=== PATIENT | female | born 1945 | race Caucasian/White ===

== ENCOUNTER → 2016-11-21 | Outpatient (REF) | payer MEDICARE, MEDICAID ==
[~2016-11-21] MED LIST: *PREMTA OR; /ADVA50050 IN; /ALEN70TA OR; /MOXI40TA IV; /PANT40TA IV; /PANT40TA OR; /TIOT18INH INH; /WARF5TA OR; ACET-654 PO; ACET0.052 PO; ACET650S3 PR; ACET65TA OR; ADVA115A INH; ALBU83IN IN; ALBU83IN INH; ALBU83IN NEB; ALUMSUS2 PO; AMLO10TA OR; APRESOLINE PO; ASPI1TAB PO; ASPI325T OR; ASPI81TA85 PO; Apresoline PO; BACITAB3 PO; BEN1.4DI EX; BENPAD TOP; BENZ100C5 PO; CEPH500C PO; CHLO0.5L MT; CINA30TA PO; CLAR1TAB2 PO; CLAR5CHW OR; CLIN300C IV; CLON-412 PO; CLOTR1CR TOP; COLA100C2 OR; CRAN500C2 PO; DALI1TAB2 PO; DESE1CRE TOP; DIOV320T OR; DRIS50002 PO; DULC10SU2 PR; DUO; ENEMENE3 PR; ENEMENE6 PR; ENOX40SY SC; ENSULIQ75 PO; FLOVENT INH; FOLI1TAB OR; FOLI1TAB2 PO; GUAI1TAB PO; HYDR-4266 PO; HYPERTONIC SALINE NEB; IPRASOL4 INH; IPRASOL4 NEB; KLOR10TA OR; LASI20TA PO; LASI40TA OR; LEVA500T PO; LEVO25TA2 OR; LIDO5DIS36 TD; LISI-538 PO; LISI10TA4 OR; LORT5TAB PO; LOSA100T36 PO; LOVE1INJ2 SC; MAGN400T2 PO; METO5TAB2 OR; MICA5TAB PO; MILKSUS OR; MILKSUS PO; MIRALEX PO; MYLASUS2 PO; Metamucil PO; Mycostatin PO; Mycostatin TOP; NEXI40CA PO; NIASPAN ER PO; NORV5TAB PO; ONDA4TAB6 PO; PERC5TAB6 PO; PLAV75TA2 OR; POTA20TA OR; PRED10TA PO; PRED20TA PO; PRIL20CA OR; PROA1AER INH; PULM0.5S INH; SIMV20TA2 OR; SIMV20TA2 PO; SPIR1CAP INH; SULF50TA OR; TRAM37.53 PO; TRAM50TA2 OR; TYLE325T5 PO; VASO2.5T IV; VITA-130 PO; VITA500T3 PO; VITMTA PO; XANA0.25 PO; ZETI10TA OR; ZETI10TA2 PO; ZOFR20TA PO; ZOFR20TA SL; ZOFR4TAB3 PO; [UNRECOGNIZED DRUG - CODE] OR; [UNRECOGNIZED DRUG - CODE] PO
== END ==
LOC: SKLAB3 14:42
PROVIDERS: ATTEND Family Medicine
DX: R33.9 Retention of urine, unspecified (principal)

== ENCOUNTER → 2016-11-23 | Outpatient (REF) | payer MEDICARE, MEDICAID ==
[2016-11-23 14:55] LABS: BASO % 0.2 % (0.0-1.0); EOS % 0.2 % (0.0-3.0); LARGE UNSTAINED CELL # 0.1 K/mm3 (0.0-0.4); LARGE UNSTAINED CELL % 0.4 % (0.0-4.0); LYMPH # 0.4 K/mm3 (1.5-4.5); MEAN CORPUSCULAR HEMOGLOBIN 29.3 pg (27.0-33.0); MEAN CORPUSCULAR HGB CONC 32.6 g/dl (32.0-36.5); MEAN CORPUSCULAR VOLUME 89.9 fl (80.0-96.0); MONO # 0.4 K/mm3 (0.0-0.8); MONO % 2.1 % (0.0-5.0); NEUTROPHILS # 16.9 K/mm3 (1.8-7.7); NEUTROPHILS % 95.1 % (36.0-66.0); PLATELET COUNT, AUTOMATED 269 k/mm3 (150-450); RED CELL DISTRIBUTION WIDTH 13.1 % (11.5-14.5); WHITE BLOOD COUNT 17.8 K/mm3 (4.0-10.0)
[2016-11-23 15:07] LABS: ALBUMIN 2.9 GM/DL (3.2-5.2); ALBUMIN/GLOBULIN RATIO 1.12 (1.00-1.93); BILIRUBIN,TOTAL 0.4 MG/DL (0.2-1.0); CALCIUM LEVEL 8.8 MG/DL (8.8-10.2); CREATININE FOR GFR 1.24 MG/DL (0.55-1.02); GLOMERULAR FILTRATION RATE 45.7 (>45); TOTAL PROTEIN 5.5 GM/DL (6.4-8.2)
--- NOTE | 2016-11-23 16:20 | REP ---
Clinical: Shortness of breath. Comparison: 07/13/2016. Findings: Stable chronic changes are appreciated along with cephalization, prominent pulmonary vasculature and interstitium as well as bibasilar opacities and suspected small layering effusions. No pneumothorax. Tracheostomy overlies the airway. Mediastinum and cardiac silhouette are stable. Skeletal structures unchanged. Impression: Findings suggesting pulmonary venous congestion and interstitial edema with bibasilar atelectasis and small layering effusion. Signed by Marcelo Vieyra MD 11/23/2016 04:11 P
== END ==
LOC: SKLAB3 13:10
PROVIDERS: ATTEND Family Medicine
DX: R06.02 Shortness of breath (principal)

== ENCOUNTER → 2016-11-24 | Outpatient (CLI) | payer MEDICARE, MEDICAID ==
[2016-11-24 08:24] LABS: BASO # 0.3 K/mm3 (0.0-0.2); BASO % 1.5 % (0.0-1.0); EOS # 0.1 K/mm3 (0.0-0.50); EOS % 0.5 % (0.0-3.0); LARGE UNSTAINED CELL # 0.2 K/mm3 (0.0-0.4); LYMPH # 1.6 K/mm3 (1.5-4.5); MEAN CORPUSCULAR HEMOGLOBIN 28.3 pg (27.0-33.0); MEAN CORPUSCULAR HGB CONC 32.2 g/dl (32.0-36.5); MEAN CORPUSCULAR VOLUME 87.8 fl (80.0-96.0); MONO # 0.8 K/mm3 (0.0-0.8); MONO % 4.2 % (0.0-5.0); NEUTROPHILS # 15.2 K/mm3 (1.8-7.7); NEUTROPHILS % 84.8 % (36.0-66.0); PLATELET COUNT, AUTOMATED 305 k/mm3 (150-450); RED CELL DISTRIBUTION WIDTH 14.1 % (11.5-14.5)
[2016-11-24 08:52] LABS: CALCIUM LEVEL 9.4 MG/DL (8.8-10.2); CREATININE FOR GFR 1.51 MG/DL (0.55-1.02); GLOMERULAR FILTRATION RATE 36.4 (>45); POTASSIUM SERUM 3.8 MEQ/L (3.5-5.1)
== END ==
LOC: SKLAB3 04:34
PROVIDERS: ATTEND Family Medicine
DX: D72.829 Elevated white blood cell count, unspecified (principal); R06.02 Shortness of breath

== ENCOUNTER → 2016-11-27 | Outpatient (REF) | payer MEDICARE, MEDICAID ==
[2016-11-27 07:46] LABS: MEAN CORPUSCULAR HEMOGLOBIN 29.8 pg (27.0-33.0); MEAN CORPUSCULAR HGB CONC 33.2 g/dl (32.0-36.5); MEAN CORPUSCULAR VOLUME 89.7 fl (80.0-96.0); WHITE BLOOD COUNT 9.6 K/mm3 (4.0-10.0)
[2016-11-27 08:19] LABS: ALBUMIN 3.4 GM/DL (3.2-5.2); ALBUMIN/GLOBULIN RATIO 1.06 (1.00-1.93); BILIRUBIN,TOTAL 0.2 MG/DL (0.2-1.0); CALCIUM LEVEL 10.8 MG/DL (8.8-10.2); CREATININE FOR GFR 1.13 MG/DL (0.55-1.02); GLOMERULAR FILTRATION RATE 50.8 (>45); TOTAL PROTEIN 6.6 GM/DL (6.4-8.2)
== END ==
LOC: SKLAB3 15:04
PROVIDERS: ATTEND Family Medicine
DX: J44.9 Chronic obstructive pulmonary disease, unspecified (principal)

== ENCOUNTER → 2016-12-06 | Outpatient (CLI) | payer MEDICARE ==
[~2016-12-06] MED LIST changes: +ACETYLCYSTEINE 20% 30 ML VIAL As Ordered ONE; +BUSP5TA PO; +D5W 100 ML IV SCH; +IPRATROPIUM 0.5MG/ALBUTEROL 2.5MG INH SOL UD 3ML (DUONEB)(J7620) As Ordered ONE; +IPRATROPIUM 0.5MG/ALBUTEROL 2.5MG INH SOL UD 3ML (DUONEB)(J7620) NEB ONE; +LIDOCAINE 2% MDV 20 ML VIAL As Ordered ONE; +MIDAZOLAM INJ 2 MG/2 ML VIAL (J2250) IV ONE; +MULTCAP11 PO; +SENN-22 PO; +VESI5TAB PO
[2016-12-06 14:51] VITALS: BP 137/56
--- NOTE | 2016-12-07 19:48 | RO ---
DATE OF PROCEDURE: 12/06/2016 (The dictating system was down yesterday). PREPROCEDURE DIAGNOSIS: Tracheostomy aging. POSTPROCEDURE DIAGNOSIS: Tracheostomy aging with possible tissue obstruction of the distal trachea. PROCEDURE: Tracheostomy change under moderate sedation. SURGEON: Dr. Margarito Marino FORGE OPERATOR: ANESTHESIA: DESCRIPTION OF PROCEDURE: Under satisfactory moderate sedation achieved with 2 mg of Versed, 2% lidocaine was placed down the tracheostomy tube. Tracheostomy tube was removed and another bolus of 2% lidocaine was placed into the proximal trachea. This was suctioned out. After waiting approximately 1-2 minutes, the new tracheostomy tube was placed. It was noticed that the new tracheostomy tube was very high riding. The new tracheostomy tube was then manipulated to the right and then slipped in without difficulty. Prior to undertaking this tracheostomy change, the last one done was quite traumatic and there was the same problem encountered where the tracheostomy tube did not go in all the way initially. It was finally pushed in and passed what is now thought to be a possible ridge or obstruction. The tracheostomy tube was secured to the neck with Velcro straps. We will plan again to change her tracheostomy tube in 2-3 months at which time I will undertake a bronchoscopy to look at the distal trachea. Patient tolerated the procedure well.
== END ==
LOC: M OPP 12:34
PROVIDERS: ATTEND Thoracic Surgery (Cardiothoracic Vascular Surgery)
DX: J95.09 Other tracheostomy complication (principal); Z88.0 Allergy status to penicillin; Z88.1 Allergy status to other antibiotic agents; Z88.8 Allergy status to other drugs, medicaments and biological substances; Z79.899 Other long term (current) drug therapy

== ENCOUNTER → 2017-01-01 | Outpatient (REF) | payer MEDICARE ==
[~2017-01-01] MED LIST changes: -ACETYLCYSTEINE 20% 30 ML VIAL As Ordered ONE; -D5W 100 ML IV SCH; -IPRATROPIUM 0.5MG/ALBUTEROL 2.5MG INH SOL UD 3ML (DUONEB)(J7620) As Ordered ONE; -IPRATROPIUM 0.5MG/ALBUTEROL 2.5MG INH SOL UD 3ML (DUONEB)(J7620) NEB ONE; -LIDOCAINE 2% MDV 20 ML VIAL As Ordered ONE; -MIDAZOLAM INJ 2 MG/2 ML VIAL (J2250) IV ONE
[2017-01-01 09:34] LABS: BASO % 0.3 % (0.0-1.0); EOS # 0.1 K/mm3 (0.0-0.50); LARGE UNSTAINED CELL # 0.1 K/mm3 (0.0-0.4); LARGE UNSTAINED CELL % 0.7 % (0.0-4.0); LYMPH % 14.5 % (24.0-44.0); MEAN CORPUSCULAR HGB CONC 32.3 g/dl (32.0-36.5); MEAN CORPUSCULAR VOLUME 89.7 fl (80.0-96.0); MONO # 0.6 K/mm3 (0.0-0.8); MONO % 4.9 % (0.0-5.0); NEUTROPHILS # 10.3 K/mm3 (1.8-7.7); NEUTROPHILS % 78.6 % (36.0-66.0); PLATELET COUNT, AUTOMATED 347 k/mm3 (150-450); RED CELL DISTRIBUTION WIDTH 14.5 % (11.5-14.5); WHITE BLOOD COUNT 13.1 K/mm3 (4.0-10.0)
[2017-01-01 09:40] LABS: CALCIUM LEVEL 10.1 MG/DL (8.8-10.2); CREATININE FOR GFR 1.37 MG/DL (0.55-1.02); GLOMERULAR FILTRATION RATE 40.7 (>45); MAGNESIUM LEVEL 2.3 MG/DL (1.8-2.4); POTASSIUM SERUM 3.3 MEQ/L (3.5-5.1)
== END ==
LOC: SKLAB3 10:47
PROVIDERS: ATTEND Family Medicine
DX: I10 Essential (primary) hypertension (principal); J44.9 Chronic obstructive pulmonary disease, unspecified

== ENCOUNTER 2017-01-16 19:07 | Inpatient (IN) | payer MEDICARE ==
[~2017-01-16] VITALS: Ht 162.6 cm; Wt 62.7 kg
[2017-01-16] VITALS (37 sets, daily range): BP systolic 133–189; BP diastolic 57–93
[2017-01-16] MEDS: IPRATROPIUM 0.5MG/ALBUTEROL 2.5MG INH SOL UD 3ML (DUONEB)(J7620) NEB SCH (19:30)
[2017-01-16 19:53] LABS: BASO % 0.3 % (0.0-1.0); EOS # 0.1 K/mm3 (0.0-0.50); EOS % 0.5 % (0.0-3.0); LARGE UNSTAINED CELL # 0.1 K/mm3 (0.0-0.4); LYMPH # 1.7 K/mm3 (1.5-4.5); LYMPH % 13.3 % (24.0-44.0); MEAN CORPUSCULAR HEMOGLOBIN 28.9 pg (27.0-33.0); MEAN CORPUSCULAR HGB CONC 32.5 g/dl (32.0-36.5); MEAN CORPUSCULAR VOLUME 88.9 fl (80.0-96.0); MONO # 0.4 K/mm3 (0.0-0.8); MONO % 2.8 % (0.0-5.0); NEUTROPHILS # 10.6 K/mm3 (1.8-7.7); NEUTROPHILS % 82.1 % (36.0-66.0); PLATELET COUNT, AUTOMATED 303 k/mm3 (150-450); RED CELL DISTRIBUTION WIDTH 14.2 % (11.5-14.5); WHITE BLOOD COUNT 12.9 K/mm3 (4.0-10.0)
[2017-01-16 19:56] LABS: ABG BASE EXCESS 10.2 (-2.0-2.0); ABG HCO3 36.3 MEQ/L (22.0-26.0); ABG PARTIAL PRESSURE CO2 55.8 mmHg (35.0-45.0); ABG PARTIAL PRESSURE O2 71.4 mmHg (75.0-100.0); ABG STANDARD HCO3 33.9 MEQ/L (22.0-26.0); ABG pH (ARTERIAL) 7.431 UNITS (7.350-7.450)
[2017-01-16] MEDS: TOBRAMYCIN INHAL 300 MG/5 ML SOLN INH SCH (20:00)
[2017-01-16] MEDS ORDERED: MIDAZOLAM INJ 2 MG/2 ML VIAL (J2250) As Ordered ONE ×2 (20:01→20:02)
[2017-01-16] MEDS ORDERED: FLUMAZENIL 0.5 MG/5 ML VIAL As Ordered ONE (20:03)
[2017-01-16] MEDS ORDERED: VITMTA PO (20:08)
[2017-01-16] MEDS ORDERED: BENPAD EXT (20:08)
[2017-01-16] MEDS ORDERED: DRIS50002 PO (20:10)
[2017-01-16 20:11] LABS: ANION GAP 2 MEQ/L (8-16); BLOOD UREA NITROGEN 36 MG/DL (7-18); CALCIUM LEVEL 9.9 MG/DL (8.8-10.2); CARBON DIOXIDE LEVEL 36 MEQ/L (21-32); CHLORIDE LEVEL 99 MEQ/L (98-107); CREATININE FOR GFR 1.43 MG/DL (0.55-1.02); GLOMERULAR FILTRATION RATE 38.7 (>45); GLUCOSE, FASTING 123 MG/DL (80-110); POTASSIUM SERUM 3.7 MEQ/L (3.5-5.1); SODIUM LEVEL 137 MEQ/L (136-145)
[2017-01-16] MEDS ORDERED: BUSP30TA PO (20:13)
[2017-01-16] MEDS ORDERED: SENN8.6T7 PO (20:13)
[2017-01-16] MEDS ORDERED: GUAI20TA PO (20:19)
[2017-01-16] MEDS ORDERED: RANI150T PO (20:19)
[2017-01-16] MEDS ORDERED: ALPR0.5T3 PO (20:19)
[2017-01-16] MEDS ORDERED: MELA10CA PO (20:19)
[2017-01-16] MEDS ORDERED: MS C15TA2 PO (20:19)
[2017-01-16] MEDS ORDERED: OXYC-517 PO (20:22)
[2017-01-16] MEDS ORDERED: XANA1TAB PO (20:22)
[2017-01-16] MEDS ORDERED: FERR325T PO (20:24)
[2017-01-16] MEDS ORDERED: MIDAZOLAM INJ 2 MG/2 ML VIAL (J2250) IV STA ×2 (20:26→21:37)
[2017-01-16] MEDS ORDERED: ANTASUS PO (20:28)
[2017-01-16] MEDS ORDERED: ONDA4TAB6 PO (20:28)
[2017-01-16] MEDS ORDERED: PERCOCET 5MG/325MG TAB PO PRN (20:45)
[2017-01-16] MEDS ORDERED: LEVALBUTEROL 1.25 MG/0.5 ML CONCENTRATE NEB NEB PRN (20:45)
[2017-01-16] MEDS ORDERED: BISACODYL 10 MG SUPP PR PRN (20:45)
[2017-01-16] MEDS ORDERED: ONDANSETRON 4MG/2ML VIAL (J2405) IV PRN (20:45)
[2017-01-16] MEDS ORDERED: ACETAMINOPHEN TAB 650MG DOSE (2X325MG) PO PRN (20:45)
[2017-01-16] MEDS ORDERED: NORCO, ANEXSIA 5/325MG TABLET (HYDROcodone/ACETAMINOPHEN) PO PRN (20:45)
[2017-01-16 20:58] LABS: BASO % 0.2 % (0.0-1.0); EOS # 0.1 K/mm3 (0.0-0.50); EOS % 0.5 % (0.0-3.0); LARGE UNSTAINED CELL # 0.1 K/mm3 (0.0-0.4); LARGE UNSTAINED CELL % 0.9 % (0.0-4.0); LYMPH # 1.8 K/mm3 (1.5-4.5); LYMPH % 13.6 % (24.0-44.0); MEAN CORPUSCULAR VOLUME 90.5 fl (80.0-96.0); MONO # 0.5 K/mm3 (0.0-0.8); MONO % 4.4 % (0.0-5.0); NEUTROPHILS # 9.8 K/mm3 (1.8-7.7); NEUTROPHILS % 80.4 % (36.0-66.0); PLATELET COUNT, AUTOMATED 284 k/mm3 (150-450); RED CELL DISTRIBUTION WIDTH 14.6 % (11.5-14.5); WHITE BLOOD COUNT 12.2 K/mm3 (4.0-10.0)
[2017-01-16 21:04] LABS: INR 0.89
[2017-01-16 21:30] LABS: ALBUMIN 3.6 GM/DL (3.2-5.2); BILIRUBIN,TOTAL 0.3 MG/DL (0.2-1.0); CALCIUM LEVEL 10.1 MG/DL (8.8-10.2); CREATININE FOR GFR 1.41 MG/DL (0.55-1.02); GLOMERULAR FILTRATION RATE 39.4 (>45); PHOSPHORUS LEVEL 3.1 MG/DL (2.5-4.9); POTASSIUM SERUM 3.6 MEQ/L (3.5-5.1); TOTAL PROTEIN 7.2 GM/DL (6.4-8.2)
[2017-01-16] MEDS ORDERED: MIDAZOLAM INJ 2 MG/2 ML VIAL (J2250) IV ONE (21:30)
[2017-01-16] MEDS ORDERED: GLUCOSE 4 GM CHEW TABLET PO PRN (21:45)
[2017-01-16] MEDS ORDERED: DEXTROSE 50% 50 ML SYRINGE IV PRN (21:45)
[2017-01-16] MEDS ORDERED: GLUCAGON FOR INJ 1 MG VIAL (J1610) SC PRN (21:45)
[2017-01-16] MEDS: DOCUSATE SODIUM 100 MG CAP PO SCH (22:53)
[2017-01-16] MEDS: CHLORHEXIDINE GLUCONATE 0.12 % 15ML UDC (PERIDEX ORAL RINSE) MT SCH (22:53)
[2017-01-16] MEDS: cefTAZidime 1 GM in D5W MINI-BAG PLUS 100 ML IV SCH (22:54)
[2017-01-16] MEDS: ALPRAZolam 0.5 MG TAB PO SCH (22:54)
[2017-01-16] MEDS: HEPARIN SOD (PORCINE) 5000 UNITS/ML VIAL SC SCH (22:54)
--- NOTE | 2017-01-16 23:28 | HPE ---
DATE OF ADMISSION: 01/16/2017 CRITICAL CARE HISTORY AND PHYSICAL Critical care time was 1 hour. This excludes all procedures. HISTORY OF PRESENT ILLNESS: I was called urgently to the intensive care unit (ICU) for an upper airway obstruction in a patient with a chronic tracheostomy. On my arrival to the room, the patient had significant amounts of mucus secretions coming out of her tracheostomy. She is a fenestrated trach in place and her cannula had already been removed with reports that it was full of thick mucus. Due to her respiratory distress, I immediately sprayed her airway with Cetacaine and performed bronchoscopy within the airway. There was a large amount of granulomatous tissue coming through the fenestration. I was able to bypass this, however, and extend down into the trachea where there was a moderate amount of mucus, mostly foamy, pale yellow in nature. No evidence of hemoptysis. Trachea was midline. Char was sharp. There was no evidence of tracheal stenosis past the level of the trach. Dr. Marino, who was the initial accepting physician, also came to bedside. It was determined to consult otolaryngology. Dr. Stoner was then consulted and presented urgently to the bedside. He had switched out her trach to a nonfenestrated trach and recommended treatment of tracheitis. The patient is able to perform some communication by mouthing words at this point in time. Normally she has a Passy-Buckingham valve and according to progress note from 12/30/2016, could speak easily with the Passy-Suni valve. She has a chronic history of Pseudomonas colonization. It is not clear that she is followed by pulmonology. She is at [facility] with a history of end-stage emphysema, chronic prednisone use and chronic hypoxic hypercarbic respiratory failure. After bronchoscopy, her breathing is slightly improved. She is on an aerosol mask. Frequent suctioning is being performed. PAST MEDICAL HISTORY: 1. End-stage emphysema, Gold stage IV. 2. Chronic trach after a prolonged hospitalization with septic shock. She has had this trach for 2 years now. 3. Chronic prednisone use at 10 mg a day. I am not sure the exact indication for this. 4. History of ileostomy. 5. History of Clostridium difficile. 6. History of obstructive sleep apnea. 7. Hypertensive heart disease with diastolic dysfunction. 8. Chronic anemia. 9. Chronic kidney disease. 10. Secondary hyperparathyroidism. 11. History of VRE. 12. Chronic anxiety. 13. Generalized osteoarthritis. 14. Chronic dysphagia. 15. Type 2 diabetes. 16. Ventral hernia. OUTPATIENT MEDICATIONS As documented in chart and copy from [facility]. ALLERGIES: Include AMOXICILLIN, METRONIDAZOLE, PENICILLINS, TETRACYCLINES. It appears that penicillin is simply a rash. There is no history of anaphylaxis. It is not clear the exact reaction to metronidazole. SOCIAL HISTORY: Unobtainable at this point in time. I do know that she has a Medical Orders for Life-Sustaining Treatment (MOLST) form that states she is DO NOT RESUSCITATE (DNR). She does not want any further resuscitation. FAMILY HISTORY: Not obtainable. REVIEW OF SYSTEMS: Unobtainable. PHYSICAL EXAMINATION: Temperature is 98.2, pulse is 102, respiratory rate is 28, blood pressure is 162/81, pulse oximetry initially 84% on nonrebreather. After bronchoscopy, oxygen saturation 100% on nonrebreather. The patient was then switched to 35% FiO2 and is saturating in the low 90s. General: The patient was in clear distress, tachypneic, tachycardiac with difficulty breathing, coughing up large amounts of mucus initially from the trach. HEENT: Sclerae clear and anicteric. Pupils equal, round, reactive to light. Mucous membranes are moist without lesions. She has upper dentures in place. No lower dentures. Tongue is midline. Neck is supple. No tracheal deviation. As mentioned in the in the history of the present illness, there is granulomatous tissue coming through the fenestration with significant amounts of mucus. All mucous was cleared. Trach was replaced by ENT at bedside with a nonfenestrated trach. Cardiac: Tachycardic, S1, S2 without audible murmur, rub, or gallop. Point of maximum impulse (PMI) is difficult to palpate. Pulmonary: Decreased breath sounds throughout without rales, rhonchi or wheezes. She is using accessory muscles to breathe. Abdomen is soft, nontender, nondistended. There is a large ventral hernia, very little abdominal muscle. There is a right lower quadrant ostomy with green solid stool. There is hyperactive bowel sounds. Extremities: No cyanosis or clubbing. There is minimal pitting edema around the ankles. Skin: No rashes, jaundice or bruising. Neurologic: No unilateral weakness; however, there is generalized muscle weakness. No tremor or asterixis. Musculoskeletal: Significant muscle wasting without evidence of joint effusion or fracture. Laboratory evaluation shows a pH of 7.43, pCO2 of 55.8, pAO2 of 71.4 on a nonrebreather. White blood cell count is 12.9, hemoglobin 11.7, hematocrit of 36.1 with a platelet count of 303 with 82% neutrophilia. Sodium is 137, potassium is 3.7, chloride 99, bicarbonate 36, BUN is 36, creatinine is 1.43, and a glucose of 123. Chest x-ray shows no evidence of pneumonia. There is some flattening of the diaphragms, hyperinflation and evidence of emphysema. There is a trach which is in appropriate position. Trachea appears clear. Left costophrenic angle slightly blunted. There does appear to be chronic parenchymal lung disease with prominent pulmonary artery suggesting pulmonary hypertension from her severe lung disease. IMPRESSION: 1. Acute respiratory failure secondary to partial airway obstruction. Appreciate Dr. Stoner's intervention. Will continue to monitor. Will treat tracheitis with and Roberto nebs due to her history of Pseudomonas and obtain sputum cultures. Antibiotics will be tapered due to the results of the sputum collection. 2. Chronic steroid use, on prednisone 10 mg. Will continue this on a daily basis. 3. Chronic hypercarbic respiratory failure and chronic hypoxic respiratory failure. Will continue oxygen as tolerated. She does not have evidence of decompensation of the hypercarbia at this point in time. The patient is at risk for this and will be monitored in the ICU. 4. Leukocytosis. Likely secondary to chronic steroid use but possibly secondary to infection. Blood cultures were obtained. 5. Renal failure. No evidence of worsening of her usual renal failure, creatinine is 1.43 today. Will monitor urine output. 6. Gastroesophageal reflux. I have placed her on Protonix. At this point in time, she has no symptoms of reflux. 7. Anxiety. I will continue her usual outpatient dose of Xanax. 8. Hypertension with hypertensive heart disease and diastolic dysfunction. I have continued Norvasc. Will continue to monitor her volume status for need for Lasix. 9. Type 2 diabetes. I placed her on a sliding scale insulin to cover for hyperglycemia as I somewhat question this underlying diagnosis. 10. Polyneuropathy. Unclear per history why she has polyneuropathy, possibly from steroid neuropathy versus diabetic neuropathy. 11. Dysphagia. I have written for a puree diet. 12. History of Clostridium difficile. I would normally start Flagyl prophylactically with the use of antibiotics; however, she has an allergy to Flagyl. Will continue to monitor for loose stools and for worsening of leukocytosis. CODE STATUS: The patient is a DO NOT RESUSCITATE (DNR). No further resuscitative efforts will be performed. This is based on the patient's previously expressed wishes. Critical care time was 1 hour. This excludes all procedures.
--- NOTE | 2017-01-16 23:33 | RO ---
DATE OF PROCEDURE: 01/16/2017 PREOPERATIVE DIAGNOSIS: Airway obstruction and respiratory distress. POSTOPERATIVE DIAGNOSIS: Airway obstruction and respiratory distress. PROCEDURE: Bronchoscopy, airway inspection. SURGEON: Dr. Christian Tate LCAC RADAR OPERATOR/NAVIGATOR: Dr. Marino ANESTHESIA: Versed 2 mg IV DESCRIPTION OF PROCEDURE: I anesthetized the tracheostomy with Cetacaine spray. Time-out was performed, identifying two patient identifiers, correct site, correct procedure. Procedure was deemed urgent; therefore, no further consent was obtained. 2 mg of IV Versed was administered. The mucus was suctioned from the airway. There was a fairly large amount of granulation tissue coming through the fenestration, which obstructed approximately 45% of the trach. I was able to pass the scope beyond this obstruction. The airways were otherwise clear except for mucus secretions. These were suctioned. The patient had a great deal of coughing. Therefore, the bronchoscope was removed. There were no observed complications. Trach was then changed by ENT. JUHI
[2017-01-17] VITALS (12 sets, daily range): BP systolic 126–192; BP diastolic 60–89
[2017-01-17] MEDS: HumaLOG INSULIN (NovoLOG) PER UNIT SC SCH ×4 (00:17→17:31)
[2017-01-17] MEDS: PERCOCET 5MG/325MG TAB PO PRN ×4 (03:15→20:13)
[2017-01-17 05:00] LABS: ABG BASE EXCESS 6.1 (-2.0-2.0); ABG HCO3 32.8 MEQ/L (22.0-26.0); ABG PARTIAL PRESSURE CO2 58.4 mmHg (35.0-45.0); ABG PARTIAL PRESSURE O2 100.2 mmHg (75.0-100.0); ABG TOTAL CO2 34.6 MEQ/L (23.0-31.0); ABG pH (ARTERIAL) 7.367 UNITS (7.350-7.450)
[2017-01-17 05:04] LABS: BASO % 0.3 % (0.0-1.0); EOS # 0.2 K/mm3 (0.0-0.50); EOS % 1.4 % (0.0-3.0); LARGE UNSTAINED CELL # 0.1 K/mm3 (0.0-0.4); LARGE UNSTAINED CELL % 1.3 % (0.0-4.0); LYMPH # 2.5 K/mm3 (1.5-4.5); LYMPH % 20.9 % (24.0-44.0); MEAN CORPUSCULAR HEMOGLOBIN 29.8 pg (27.0-33.0); MEAN CORPUSCULAR HGB CONC 32.6 g/dl (32.0-36.5); MEAN CORPUSCULAR VOLUME 91.4 fl (80.0-96.0); MONO # 0.6 K/mm3 (0.0-0.8); MONO % 5.4 % (0.0-5.0); NEUTROPHILS # 8.1 K/mm3 (1.8-7.7); NEUTROPHILS % 70.7 % (36.0-66.0); PLATELET COUNT, AUTOMATED 267 k/mm3 (150-450); RED CELL DISTRIBUTION WIDTH 14.5 % (11.5-14.5); WHITE BLOOD COUNT 11.5 K/mm3 (4.0-10.0)
[2017-01-17 05:17] LABS: CALCIUM LEVEL 9.7 MG/DL (8.8-10.2); CREATININE FOR GFR 1.38 MG/DL (0.55-1.02); GLOMERULAR FILTRATION RATE 40.4 (>45); POTASSIUM SERUM 3.5 MEQ/L (3.5-5.1)
[2017-01-17] MEDS: IPRATROPIUM 0.5MG/ALBUTEROL 2.5MG INH SOL UD 3ML (DUONEB)(J7620) NEB SCH ×6 (06:05→20:35)
[2017-01-17] MEDS: LEVALBUTEROL 1.25 MG/0.5 ML CONCENTRATE NEB NEB SCH ×4 (06:05→20:00)
--- NOTE | 2017-01-17 06:09 | REP ---
PORTABLE CHEST: AP portable view of the chest is performed. Comparison 07/13/2016. There is bibasilar fibrotic change which is stable. There is a tracheostomy tube. There is calcification of the thoracic aorta. The heart is slightly enlarged. The mediastinal silhouette is unchanged. IMPRESSION: Stable chronic findings without definite acute pulmonary disease. Signed by Jose C Freeman MD 01/17/2017 10:13 A
[2017-01-17] MEDS: TOBRAMYCIN INHAL 300 MG/5 ML SOLN INH SCH ×2 (07:24→20:35)
[2017-01-17] MEDS: MOM 30ML SUSPENSION UDC PO SCH (07:48)
[2017-01-17] MEDS: DOCUSATE SODIUM 100 MG CAP PO SCH ×2 (07:48→20:15)
[2017-01-17] MEDS: CHLORHEXIDINE GLUCONATE 0.12 % 15ML UDC (PERIDEX ORAL RINSE) MT SCH ×2 (08:07→20:14)
[2017-01-17] MEDS: PANTOPRAZOLE 40MG INJ (PROTONIX) (C9113) IV SCH (08:08)
[2017-01-17] MEDS: LACTOBACILLUS ACIDOPHILUS CAP (BACID) PO SCH ×2 (08:08→20:13)
[2017-01-17] MEDS: predniSONE 10 MG TAB PO SCH (08:08)
[2017-01-17] MEDS: HEPARIN SOD (PORCINE) 5000 UNITS/ML VIAL SC SCH ×2 (08:08→20:16)
[2017-01-17] MEDS: amLODIPine 5 MG TAB PO SCH (08:09)
[2017-01-17] MEDS: ALPRAZolam 0.5 MG TAB PO SCH ×2 (08:09→20:16)
--- NOTE | 2017-01-17 08:24 | REP ---
Portable chest x-ray: Sitting AP view. History: Tracheostomy tube change. Comparison study January 16, 2017. Findings: Tracheostomy tube is seen in good position. EKG monitoring electrodes overlie the chest. The lung lópez are well inflated, clear and unchanged. There are some emphysematous changes in the upper lobes. Heart is not felt to be enlarged. Pleuroparenchymal fibrosis is seen in the right base, unchanged. Impression: Tracheostomy tube in good position. No new infiltrate. Signed by Marcus Carrizales MD 01/17/2017 12:24 P
[2017-01-17] MEDS ORDERED: PANTOPRAZOLE 40MG INJ (PROTONIX) (C9113) IV SCH (09:00)
[2017-01-17] MEDS: cefTAZidime 1 GM in D5W MINI-BAG PLUS 100 ML IV SCH ×2 (09:36→22:06)
--- NOTE | 2017-01-17 11:06 | ECGEPIP ---
Stationary ECG Study [facility] - ED Test Date: 2017-01-16 Pat Name: IRTA KRAUS Department: Room: [place] [address] Gender: F Transfer Knitter: tye : 1945 Requested By: MAYTE Bradshaw Order Number: [id number] Reading MD: Phyllis Naidu Measurements Intervals [place] Rate: 95 P: 58 MA: 139 QRS: -8 QRSD: 77 T: 61 QT: 333 QTc: 420 Interpretive Statements SINUS RHYTHM DECREASED RATE 03/22/15 Electronically Signed On 01-17-2017 11:06:00 EST by Phyllis Naidu
[2017-01-17] MEDS: **hydrALAZINE HCL** 25 MG TAB PO SCH (21:21)
[2017-01-17] MEDS: cloNIDine 0.1 MG TAB PO SCH (21:22)
[2017-01-18] VITALS: BP 165/72
[2017-01-18] MEDS: HumaLOG INSULIN (NovoLOG) PER UNIT SC SCH ×3 (00:29→12:50)
[2017-01-18 04:00] VITALS: BP 186/77
[2017-01-18 05:13] LABS: BASO % 0.5 % (0.0-1.0); EOS # 0.2 K/mm3 (0.0-0.50); LARGE UNSTAINED CELL # 0.1 K/mm3 (0.0-0.4); LARGE UNSTAINED CELL % 1.5 % (0.0-4.0); LYMPH # 2.3 K/mm3 (1.5-4.5); LYMPH % 29.6 % (24.0-44.0); MEAN CORPUSCULAR HEMOGLOBIN 29.3 pg (27.0-33.0); MEAN CORPUSCULAR HGB CONC 32.4 g/dl (32.0-36.5); MEAN CORPUSCULAR VOLUME 90.5 fl (80.0-96.0); MONO # 0.4 K/mm3 (0.0-0.8); MONO % 5.4 % (0.0-5.0); NEUTROPHILS # 4.4 K/mm3 (1.8-7.7); NEUTROPHILS % 60.1 % (36.0-66.0); PLATELET COUNT, AUTOMATED 244 k/mm3 (150-450); RED CELL DISTRIBUTION WIDTH 14.2 % (11.5-14.5); WHITE BLOOD COUNT 7.4 K/mm3 (4.0-10.0)
[2017-01-18 05:29] LABS: CALCIUM LEVEL 8.9 MG/DL (8.8-10.2); CREATININE FOR GFR 1.38 MG/DL (0.55-1.02); GLOMERULAR FILTRATION RATE 40.4 (>45); POTASSIUM SERUM 3.5 MEQ/L (3.5-5.1)
[2017-01-18] MEDS: LEVALBUTEROL 1.25 MG/0.5 ML CONCENTRATE NEB NEB SCH ×2 (05:43→07:04)
[2017-01-18 05:50] LABS: ABG BASE EXCESS 7.9 (-2.0-2.0); ABG HCO3 34.5 MEQ/L (22.0-26.0); ABG PARTIAL PRESSURE CO2 59.1 mmHg (35.0-45.0); ABG STANDARD HCO3 31.8 MEQ/L (22.0-26.0); ABG TOTAL CO2 36.3 MEQ/L (23.0-31.0); ABG pH (ARTERIAL) 7.384 UNITS (7.350-7.450)
[2017-01-18 06:00] VITALS: BP 154/75
[2017-01-18] MEDS: IPRATROPIUM 0.5MG/ALBUTEROL 2.5MG INH SOL UD 3ML (DUONEB)(J7620) NEB SCH ×2 (07:01→11:01)
[2017-01-18] MEDS: TOBRAMYCIN INHAL 300 MG/5 ML SOLN INH SCH (07:01)
[2017-01-18] MEDS: PANTOPRAZOLE 40MG INJ (PROTONIX) (C9113) IV SCH (07:52)
[2017-01-18] MEDS: HEPARIN SOD (PORCINE) 5000 UNITS/ML VIAL SC SCH (07:52)
[2017-01-18] MEDS: CHLORHEXIDINE GLUCONATE 0.12 % 15ML UDC (PERIDEX ORAL RINSE) MT SCH (07:52)
[2017-01-18] MEDS: LACTOBACILLUS ACIDOPHILUS CAP (BACID) PO SCH (07:53)
[2017-01-18] MEDS: ALPRAZolam 0.5 MG TAB PO SCH (07:53)
[2017-01-18] MEDS: predniSONE 10 MG TAB PO SCH (07:53)
[2017-01-18] MEDS: MOM 30ML SUSPENSION UDC PO SCH (07:53)
[2017-01-18] MEDS: amLODIPine 5 MG TAB PO SCH (07:56)
[2017-01-18] MEDS: cloNIDine 0.1 MG TAB PO SCH (07:56)
[2017-01-18 07:57] VITALS: BP 159/68
[2017-01-18] MEDS: **hydrALAZINE HCL** 25 MG TAB PO SCH (07:57)
[2017-01-18] MEDS: DOCUSATE SODIUM 100 MG CAP PO SCH (07:57)
[2017-01-18 08:00] VITALS: BP 159/68
[2017-01-18] MEDS ORDERED: LOSARTAN 50 MG TAB PO SCH (09:00)
[2017-01-18] MEDS: cefTAZidime 1 GM in D5W MINI-BAG PLUS 100 ML IV SCH (10:14)
[2017-01-18] MEDS ORDERED: CEFD1CAP8 PO (10:22)
--- NOTE | 2017-01-19 07:56 | DSES ---
DATE OF ADMISSION: 01/16/2017 DATE OF DISCHARGE: 01/18/2017 PRIMARY CARE PHYSICIAN: Dr. Sean Kendall. ATTENDING TODAY: Dr. Francy Rivera. CONSULTANTS: Dr. Stoner. Dr. Tate. This is a 71-year-old female patient who presented to [facility] emergency room for an upper airway obstruction in a patient who has chronic tracheostomy. Upon arrival, the patient was found to have significant amounts of mucous and secretions from her trache. She has a fenestrated trache in place and her cannula had been removed with report that it is full of thick mucous. Due to respiratory distress, her airway was sprayed with Cetacaine and bronchoscopy was performed. There was a large amount of granulomatous tissue coming through the fenestration. This was able to be bypassed and extended down into the trachea where there was a moderate amount of mucous, mostly foamy pale yellow in nature. No evidence of hemoptysis. Dr. Marino came to bedside. They discussed consultation with otolaryngology. Dr. Stoner was then consulted and presented urgently to the bedside. He switched out her trache to a non-fenestrated trache and recommended treatment for tracheitis. The patient was able to perform some communications by mouthing words. Normally she uses a Passy-Hazard valve and could speak easily with this. She does have a history of chronic pseudomonas colonization. During her hospitalization after initial procedure, she did remain medically stable. Cultures were obtained. She was started on IV antibiotics with ceftazidime. Culture was obtained of sputum with a preliminary results of Klebsiella pneumoniae. Otherwise normal eric. I will discharge her on Omnicef today. She is a resident of [facility] and certainly is at her baseline at this point in terms of her respiratory status. She has confirmed that with me this morning. Her other medications are otherwise normal. DISCHARGE DIAGNOSES: Tracheitis. Acute respiratory failure with partial airway obstruction secondary to tracheitis. Chronic steroid use. Chronic hypercarbic respiratory failure. Chronic hypoxic respiratory failure. Acute kidney disease. Gastroesophageal reflux disease. Anxiety. Type 2 diabetes. DISCHARGE MEDICATIONS: - acetaminophen 650 mg every 6 hours as needed for pain and fever - cefdinir 300 mg twice daily - albuterol sulfate inhaled every 2 hours as needed for shortness of breath, wheezing and DuoNebs every 4 hours - alprazolam 0.5 mg three times daily - amlodipine 5 mg daily - antacid 20 mg by mouth every 4 hours as needed for indigestion - Dulcolax 10 mg per rectum suppository daily as needed for constipation - BuSpar 30 mg twice daily - clonidine 0.1 mg twice daily - Senna one tablet by mouth daily - Nexium 40 mg daily - ferrous sulfate 325 mg weekly - Lasix 20 mg daily - guaifenesin 800 mg by mouth three times daily - hydralazine 50 mg by mouth three times daily - Losartan 100 mg by mouth daily - magnesium oxide 400 mg by mouth three times daily - melatonin 10 mg by mouth daily - milk of magnesia 30 mL by mouth daily as needed for constipation - morphine 15 mg by mouth daily at bedtime - multivitamin tablet by mouth daily - Zofran 4 mg by mouth every 6 hours as needed for nausea - oxycodone 5 mg by mouth every 4 hours as needed for pain - prednisone 10 mg daily - ranitidine 150 mg by mouth twice daily - fleet enema per rectum daily as needed for constipation - vitamin D 50,000 one weekly - Xanax XL 1.5 mg by mouth daily Discharge plan will be to followup with pulmonology per their request, followup with ENT as needed, followup with Dr. Kendall upon arrival back to the [facility]. She should have no added salt, consistent carbohydrate, pureed diet. Her activities should be as tolerated. Her oxygen saturations should be maintained between 88 and 92%, not higher than 92%. Her trache collar should be kept secure, not loose.
== END 2017-01-18 13:05 | DRG 189 ==
LOC: EDBD 19:07 → M ED 19:45 → M ICU 20:07
PROVIDERS: ADMIT Thoracic Surgery (Cardiothoracic Vascular Surgery); ATTEND Family Medicine
PROC: 0BJ08ZZ Inspection of Tracheobronchial Tree, Via Natural or Artificial Opening Endoscopic (ICD-10-PCS; principal; 2017-01-16)
PROC: 0B21XFZ Change Tracheostomy Device in Trachea, External Approach (ICD-10-PCS; 2017-01-16)
DX: J96.21 Acute and chronic respiratory failure with hypoxia (principal); J04.11 Acute tracheitis with obstruction; N25.81 Secondary hyperparathyroidism of renal origin; J96.12 Chronic respiratory failure with hypercapnia; J43.9 Emphysema, unspecified; D64.9 Anemia, unspecified; Z93.0 Tracheostomy status; G47.33 Obstructive sleep apnea (adult) (pediatric); E11.65 Type 2 diabetes mellitus with hyperglycemia; K21.9 Gastro-esophageal reflux disease without esophagitis; E11.42 Type 2 diabetes mellitus with diabetic polyneuropathy; N18.9 Chronic kidney disease, unspecified; F41.9 Anxiety disorder, unspecified; R13.10 Dysphagia, unspecified; I13.10 Hypertensive heart and chronic kidney disease without heart failure, with stage 1 through stage 4 chronic kidney disease, or unspecified chronic kidney disease; M15.9 Polyosteoarthritis, unspecified; Z88.0 Allergy status to penicillin; Z88.1 Allergy status to other antibiotic agents; Z88.8 Allergy status to other drugs, medicaments and biological substances; Z79.51 Long term (current) use of inhaled steroids; Z93.2 Ileostomy status

== ENCOUNTER → 2017-02-23 | Outpatient (REF) | payer MEDICARE ==
[~2017-02-23] MED LIST changes: +ALPR0.5T3 PO; +ANTASUS PO; +BENPAD EXT; +BUSP30TA PO; +CEFD1CAP8 PO; +FERR325T PO; +GUAI20TA PO; +MELA10CA PO; +MS C15TA2 PO; +MYLASUS16 PO; -MYLASUS2 PO; +OXYC-517 PO; +RANI150T PO; +SENN8.6T7 PO; +XANA1TAB PO
[2017-02-26 10:36] LABS: BASO % 0.5 % (0.0-1.0); EOS # 0.2 K/mm3 (0.0-0.50); EOS % 2.3 % (0.0-3.0); LARGE UNSTAINED CELL # 0.1 K/mm3 (0.0-0.4); LARGE UNSTAINED CELL % 1.7 % (0.0-4.0); LYMPH # 2.6 K/mm3 (1.5-4.5); LYMPH % 32.4 % (24.0-44.0); MEAN CORPUSCULAR HEMOGLOBIN 29.6 pg (27.0-33.0); MEAN CORPUSCULAR HGB CONC 32.1 g/dl (32.0-36.5); MEAN CORPUSCULAR VOLUME 92.2 fl (80.0-96.0); MONO # 0.5 K/mm3 (0.0-0.8); MONO % 6.7 % (0.0-5.0); NEUTROPHILS # 4.4 K/mm3 (1.8-7.7); NEUTROPHILS % 56.4 % (36.0-66.0); PLATELET COUNT, AUTOMATED 267 k/mm3 (150-450); RED CELL DISTRIBUTION WIDTH 14.7 % (11.5-14.5); WHITE BLOOD COUNT 7.9 K/mm3 (4.0-10.0)
[2017-02-26 11:09] LABS: CALCIUM LEVEL 10.3 MG/DL (8.8-10.2); CREATININE FOR GFR 1.33 MG/DL (0.55-1.02); GLOMERULAR FILTRATION RATE 42.1 (>45); POTASSIUM SERUM 3.6 MEQ/L (3.5-5.1)
== END ==
LOC: SKLAB3 08:00
PROVIDERS: ATTEND Family Medicine
DX: J44.9 Chronic obstructive pulmonary disease, unspecified (principal); I10 Essential (primary) hypertension

== ENCOUNTER → 2017-03-19 | Outpatient (REF) | payer MEDICARE ==
--- NOTE | 2017-03-19 22:20 | REPUSA ---
Clinical history: Congestion. Comparison: None. Findings: The mediastinum and cardiac silhouette are within normal limits. There is an acute right lo wer lobe infiltrate. Tracheostomy tube is in place. No pleural effusion or pneumothorax is seen. The osseous structures and soft tissues are unremarkable. Impression: Right lower lobe pneumonia.
== END ==
LOC: M RAD 21:28 → SKLAB3 21:28
PROVIDERS: ATTEND Family Medicine
DX: J18.9 Pneumonia, unspecified organism (principal); R53.83 Other fatigue

== ENCOUNTER → 2017-03-19 | Outpatient (REF) | payer MEDICARE ==
[2017-03-19 12:10] LABS: BASO % 0.3 % (0.0-1.0); EOS # 0.2 K/mm3 (0.0-0.50); EOS % 1.5 % (0.0-3.0); LARGE UNSTAINED CELL # 0.1 K/mm3 (0.0-0.4); LARGE UNSTAINED CELL % 0.9 % (0.0-4.0); LYMPH # 1.4 K/mm3 (1.5-4.5); LYMPH % 11.5 % (24.0-44.0); MEAN CORPUSCULAR HEMOGLOBIN 30.7 pg (27.0-33.0); MEAN CORPUSCULAR HGB CONC 33.6 g/dl (32.0-36.5); MEAN CORPUSCULAR VOLUME 91.5 fl (80.0-96.0); MONO # 0.7 K/mm3 (0.0-0.8); MONO % 5.8 % (0.0-5.0); NEUTROPHILS # 9.1 K/mm3 (1.8-7.7); NEUTROPHILS % 80.1 % (36.0-66.0); PLATELET COUNT, AUTOMATED 308 k/mm3 (150-450); RED CELL DISTRIBUTION WIDTH 14.3 % (11.5-14.5); WHITE BLOOD COUNT 11.4 K/mm3 (4.0-10.0)
[2017-03-19 12:28] LABS: CALCIUM LEVEL 10.1 MG/DL (8.8-10.2); CREATININE FOR GFR 3.92 MG/DL (0.55-1.02); GLOMERULAR FILTRATION RATE 12.1 (>45)
[2017-03-19 12:45] LABS: POTASSIUM SERUM 5.5 MEQ/L (3.5-5.1)
== END ==
LOC: SKLAB3 11:02
PROVIDERS: ATTEND Family Medicine
DX: R53.83 Other fatigue (principal)

== ENCOUNTER → 2017-03-20 | Outpatient (REF) | payer MEDICARE ==
[2017-03-20 08:35] LABS: BASO % 0.1 % (0.0-1.0); EOS # 0.1 K/mm3 (0.0-0.50); LARGE UNSTAINED CELL # 0.1 K/mm3 (0.0-0.4); LARGE UNSTAINED CELL % 1.1 % (0.0-4.0); LYMPH # 1.2 K/mm3 (1.5-4.5); LYMPH % 11.6 % (24.0-44.0); MEAN CORPUSCULAR HGB CONC 33.1 g/dl (32.0-36.5); MEAN CORPUSCULAR VOLUME 93.7 fl (80.0-96.0); MONO # 0.7 K/mm3 (0.0-0.8); MONO % 6.5 % (0.0-5.0); NEUTROPHILS # 8.3 K/mm3 (1.8-7.7); NEUTROPHILS % 79.7 % (36.0-66.0); PLATELET COUNT, AUTOMATED 280 k/mm3 (150-450); RED CELL DISTRIBUTION WIDTH 14.2 % (11.5-14.5); WHITE BLOOD COUNT 10.4 K/mm3 (4.0-10.0)
[2017-03-20 08:54] LABS: CALCIUM LEVEL 9.3 MG/DL (8.8-10.2); CREATININE FOR GFR 2.97 MG/DL (0.55-1.02); GLOMERULAR FILTRATION RATE 16.7 (>45)
[2017-03-20 08:56] LABS: POTASSIUM SERUM 5.2 MEQ/L (3.5-5.1)
== END ==
LOC: SKLAB3 03-20 07:00
PROVIDERS: ATTEND Family Medicine
DX: D64.9 Anemia, unspecified (principal)

== ENCOUNTER → 2017-03-21 | Outpatient (REF) | payer MEDICARE ==
[2017-03-21 08:13] LABS: CREATININE FOR GFR 1.49 MG/DL (0.55-1.02); GLOMERULAR FILTRATION RATE 36.9 (>45); POTASSIUM SERUM 4.6 MEQ/L (3.5-5.1)
[2017-03-21 08:21] LABS: CALCIUM LEVEL 7.6 MG/DL (8.8-10.2)
== END ==
LOC: SKLAB3 07:00
PROVIDERS: ATTEND Family Medicine
DX: E86.0 Dehydration (principal)

== ENCOUNTER → 2017-03-22 | Outpatient (REF) | payer MEDICARE ==
[2017-03-22 09:46] LABS: CREATININE FOR GFR 1.18 MG/DL (0.55-1.02); GLOMERULAR FILTRATION RATE 48.3 (>45); POTASSIUM SERUM 4.5 MEQ/L (3.5-5.1)
== END ==
LOC: SKLAB3 07:00
PROVIDERS: ATTEND Family Medicine
DX: E86.0 Dehydration (principal)

== ENCOUNTER → 2017-03-23 | Outpatient (REF) | payer MEDICARE | LOC: SKLAB3 18:31 | PROVIDERS: ATTEND Family Medicine | DX: R06.00 Dyspnea, unspecified (principal) ==

== ENCOUNTER → 2017-03-26 | Outpatient (REF) | payer MEDICARE ==
[2017-03-26 08:57] LABS: MEAN CORPUSCULAR HEMOGLOBIN 30.5 pg (27.0-33.0); MEAN CORPUSCULAR HGB CONC 32.7 g/dl (32.0-36.5); MEAN CORPUSCULAR VOLUME 93.4 fl (80.0-96.0); RED CELL DISTRIBUTION WIDTH 14.8 % (11.5-14.5); WHITE BLOOD COUNT 19.5 K/mm3 (4.0-10.0)
[2017-03-26 09:21] LABS: ANION GAP 7 MEQ/L (8-16); BLOOD UREA NITROGEN 22 MG/DL (7-18); CALCIUM LEVEL 9.5 MG/DL (8.8-10.2); CARBON DIOXIDE LEVEL 29 MEQ/L (21-32); CHLORIDE LEVEL 107 MEQ/L (98-107); CREATININE FOR GFR 0.93 MG/DL (0.55-1.02); GLOMERULAR FILTRATION RATE > 60.0 (>45); GLUCOSE, FASTING 89 MG/DL (80-110); MAGNESIUM LEVEL 1.2 MG/DL (1.8-2.4); POTASSIUM SERUM 4.1 MEQ/L (3.5-5.1); SODIUM LEVEL 143 MEQ/L (136-145)
== END ==
LOC: SKLAB3 12:44
PROVIDERS: ATTEND Family Medicine
DX: I10 Essential (primary) hypertension (principal); E86.0 Dehydration; Z79.899 Other long term (current) drug therapy

== ENCOUNTER → 2017-03-29 | Outpatient (REF) | payer MEDICARE ==
[2017-03-29 09:01] LABS: BASO % 0.3 % (0.0-1.0); EOS # 0.2 K/mm3 (0.0-0.50); EOS % 2.8 % (0.0-3.0); LARGE UNSTAINED CELL # 0.1 K/mm3 (0.0-0.4); LARGE UNSTAINED CELL % 1.6 % (0.0-4.0); LYMPH # 1.6 K/mm3 (1.5-4.5); MEAN CORPUSCULAR HEMOGLOBIN 30.1 pg (27.0-33.0); MEAN CORPUSCULAR HGB CONC 32.2 g/dl (32.0-36.5); MEAN CORPUSCULAR VOLUME 93.6 fl (80.0-96.0); MONO # 0.4 K/mm3 (0.0-0.8); NEUTROPHILS # 4.8 K/mm3 (1.8-7.7); NEUTROPHILS % 68.3 % (36.0-66.0); PLATELET COUNT, AUTOMATED 307 k/mm3 (150-450); RED CELL DISTRIBUTION WIDTH 14.7 % (11.5-14.5)
[2017-03-29 09:35] LABS: CREATININE FOR GFR 1.07 MG/DL (0.55-1.02); GLOMERULAR FILTRATION RATE 54.1 (>45); POTASSIUM SERUM 4.4 MEQ/L (3.5-5.1)
== END ==
LOC: SKLAB3 08:00
PROVIDERS: ATTEND Family Medicine
DX: N18.9 Chronic kidney disease, unspecified (principal)